=== PATIENT | female | born 1935 | race Caucasian/White ===

== ENCOUNTER 2019-02-03 12:56 | Outpatient (CLI) | payer MEDICARE, OTHER ==
[2019-02-03 13:14] LABS: CALCIUM 9.4 mg/dL (8.5-10.3); CREATININE 1.4 mg/dL (0.4-1.0)
== END 2019-02-03 12:57 | disposition home or self-care (01) ==
LOC: LAB 12:56
PROVIDERS: ATTEND Internal Medicine
DX: I10 Essential (primary) hypertension (principal); N28.9 Disorder of kidney and ureter, unspecified
CPT/HCPCS: 36415; 80048

== ENCOUNTER 2019-02-25 12:40 | Outpatient (CLI) | payer MEDICARE, OTHER ==
[2019-02-25 14:27] LABS: CREATININE 1.2 mg/dL (0.4-1.0)
== END 2019-02-25 12:41 | disposition home or self-care (01) ==
LOC: LAB 12:40
PROVIDERS: ATTEND Internal Medicine
DX: N28.9 Disorder of kidney and ureter, unspecified (principal)
CPT/HCPCS: 36415; 80048